=== PATIENT | female | born 1995 | race Two or more races ===

== ENCOUNTER 2016-12-18 15:07 | Emergency (ER) | payer MEDICAID | END 2016-12-18 15:10 | disposition left against medical advice (07) | LOC: ER 15:07 | DX: R11.0 Nausea (principal); R00.2 Palpitations ==

== ENCOUNTER 2017-06-28 15:32 | Emergency (ER) | payer MEDICAID ==
--- NOTE | 2017-06-28 15:35 | ED Physician Chart ---
Chief Complaint/HPI - Patient Information Date Seen:: 06/28/17 Time Seen:: 15:34 Chief Complaint:: right lower extremity redness History of Present Illness:: 22-year-old female complains of acute, constant, worsening, moderate to severe, right lower initial redness that started yesterday. This is in the setting of being bitten by unknown insects along the ankle. Has associated swelling, pain and warmth to touch of the area. She had a similar occurrence about one year ago developed cellulitis. Allergies:: Allergies Allergy/AdvReac Type Severity Reaction Status Date / Time No Known Allergies Allergy Verified 07/21/16 14:00 Historian:: Patient Review:: Nurse's Note Reviewed Review of Systems - Review of Systems Other: Complete system review otherwise unremarkable except as noted in history of present illness. Past Medical History - Past Medical History Past Medical History: No significant medical hx Family History: None Social History: Non Smoker, No Alcohol, No Drug Use Surgical History: None Psychiatricy History: None Medication: None Family Medical History - Family Member Mother History Unknown: Yes Ethnicity: Living Status: Still Living Hx Family Cancer: No Hx Family Coronary Artery Disease: No Hx Family Congestive Heart Failure: No Hx Family Hypertension: No Hx Family Stroke: No Hx Family Diabetes: Yes Hx Family Seizures: No Hx Family Dementia: No Hx Family AIDS: No Hx Family HIV: No Hx Family COPD: No Hx Family Hepatitis: No Hx Family Psychiatric Problems: No Hx Family Tuberculosis: No Physical Exam - Physical Examination Other:: INITIAL VITAL SIGNS: Reviewed by me GENERAL: Alert and interactive. No acute distress HEAD: Head is normocephalic and atraumatic EYES: EOMI. PERRL. No scleral icterus. No conjunctival injection ENT: Moist mucous membranes. NECK: Supple. No masses. Full range of motion RESPIRATORY: No tachypnea. Clear breath sounds bilaterally. No wheezing, rales, or rhonchi CV: Regular rate and rhythm. No murmurs, rubs, or gallops ABDOMEN: Soft, non-distended, non-tender. No guarding. No rebound. No masses. EXTREMITIES: Right lower extremity around the ankle has nearly circumferential erythema with edema and warmth to palpation, consistent with cellulitis. SKIN: Warm and dry. No obvious rashes. NEUROLOGIC: Alert and oriented. Face is symmetric. Speech is normal. Moves all extremities equally. Motor and sensory distally intact. ED Septic Shock - . Is Septic Shock (SBP<90, OR Lactate>4 mmol\L) present?: No Reassessment (Disposition) - Reassessment Reassessment:: Blood pressure was noted to be elevated over 120/80. There were no signs of hypertension. Discussed the findings with the patient and recommended that the patient follow up with the primary care physician regarding the elevated blood pressure. Patient was bit by an insect on the ankle multiple areas. She is consequently developed what looks like cellulitis of the right lower extremity. She's had similar episode about one year ago. Took Keflex and Bactrim and symptoms resolved. Today we provided a prescription for Keflex, Bactrim and ibuprofen. Here in the ER we administered her first dose of Keflex and Bactrim. Advised her to follow up with the primary care physician within 2-3 days for wound check. Return to ER precautions were given. The patient says she understands and agrees with the plan. Reassessment Condition:: Improved - Diagnosis Diagnosis:: Right lower extremity cellulitis - Aftercare/Follow up Instructions Aftercare/Follow-Up Instructions:: Counseled pt regarding lab results/diagnosis & need follow up, Refer to Discharge Instructions - Patient Disposition Discharge/Transfer:: Home Time:: 15:50 Condition at Disposition:: Improved ED Discharge Plan - Patient Disposition Admit/Discharge/Transfer: PT DISCHARGED HOME Condition at Disposition: Improved Instructions: Cellulitis, [id number] Additional Instructions: Follow-up with your primary care provider within 2-3 days for checkup
[2017-06-28] MEDS ORDERED: Sulfamethoxazole/TMP 800/160mg Tab PO ONE (15:42)
[2017-06-28] MEDS ORDERED: Sulfamethoxazole/TMP 800/160mg Tab ONE (15:56)
== END 2017-06-28 16:03 | disposition home or self-care (01) ==
LOC: ER 15:32
DX: L03.115 Cellulitis of right lower limb (principal)
CPT/HCPCS: Z7502; Z7610

== ENCOUNTER 2017-08-31 02:16 | Emergency (ER) | payer MEDICAID ==
--- NOTE | 2017-08-31 02:45 | ED Physician Chart ---
ED Chief Complaint/HPI - Patient Information Date Seen:: 08/31/17 Time Seen:: 02:00 Chief Complaint:: Neck pain History of Present Illness:: Neck pain 1 day duration Allergies:: Allergies Allergy/AdvReac Type Severity Reaction Status Date / Time No Known Allergies Allergy Verified 07/21/16 14:00 Vitals:: Vital Signs - 8 hr 08/31/17 02:18 Temp 98.6 F HR 66 RR 18 BP 100/67 O2 Sat % 97 Historian:: Patient Review:: Nurse's Note Reviewed ED Review of Systems - Review of Systems General/Constitutional: No fever Skin: No skin lesions Head: No headache Eyes: No loss of vision ENT: Earache Neck: Neck pain (point tenderness) Cardio Vascular: No chest pain Pulmonary: No SOB GI: No diarrhea G/U: No dysuria Musculoskeletal: Bone or joint pain (Right side of neck) Endocrine: No polyuria Psychiatric: No suicidal ideation Hematopoietic: No bruising Allergic/Immuno: No urticaria Neurological: No syncope ED Past Medical History - Past Medical History Past Medical History: No significant medical hx Family History: None Psychiatricy History: None Family Medical History - Family Member Mother History Unknown: Yes Ethnicity: Living Status: Still Living Hx Family Cancer: No Hx Family Coronary Artery Disease: No Hx Family Congestive Heart Failure: No Hx Family Hypertension: No Hx Family Stroke: No Hx Family Diabetes: Yes Hx Family Seizures: No Hx Family Dementia: No Hx Family AIDS: No Hx Family HIV: No Hx Family COPD: No Hx Family Hepatitis: No Hx Family Psychiatric Problems: No Hx Family Tuberculosis: No ED Physical Exam - Physical Examination General/Constitutional: Awake, Well-developed, well-nourished, No distress Head: Atraumatic Eyes: Lids, conjuctiva normal Skin: Nl inspection ENMT: External ears, nose nl, TM canals nl Other ENMT comments:: red pharanyx eqivocal adenopathy Neck: No nuchal rigidity Other Neck comments:: eqivocal adenopathy no mastoid tenderness Respiratory: Nl effort/Exclusion Cardio Vascular: RRR, No murmur, gallop, rubs, NL S1 S2 GI: No tenderness/rebounding/guarding Extremities: Full ROM Neuro/Psych: Alert/oriented Misc: Normal back ED Assessment - Assessment General Assessment: localized tenderness early torticollis This condition life threatening/high prob of deterioration: No ED Septic Shock - . Is Septic Shock (SBP<90, OR Lactate>4 mmol\L) present?: No - <6hrs of presentation: Vital Signs: Vital Signs - 8 hr 08/31/17 02:18 Temp 98.6 F HR 66 RR 18 BP 100/67 O2 Sat % 97 ED Reassessment (Disposition) - Reassessment Reassessment Condition:: Unchanged - Diagnosis Diagnosis:: early torticollis versus other etiology, not meningitis - Aftercare/Follow up Instructions Notes:: Instructed to see PMD on Friday for further examination. X-ray at this point low probability as no trauma involved. Throat culture pending, fever would prompt reevaluation. Medication Prescribed:: tylenol - Patient Disposition Discharge/Transfer:: Home ED Discharge Plan - Patient Disposition Admit/Discharge/Transfer: PT DISCHARGED HOME Instructions: Cervical Sprain, [id number] Additional Instructions: FOLLOW UP WITH PMD ON FRIDAY A.M., USE HEAT 30 MINUTES ON 30 MINUTES OFF, GO BACK TO EMERGENCY ROOM IF SYMPTOMS WORSEN. Forms: Work Release Form
== END 2017-08-31 02:50 | disposition home or self-care (01) ==
LOC: ER 02:16
DX: M43.6 Torticollis (principal)
CPT/HCPCS: 87070-90; Z7502

== ENCOUNTER 2017-12-06 16:56 | Emergency (ER) | payer MEDICAID ==
--- NOTE | 2017-12-06 17:25 | ED Physician Chart ---
ED Chief Complaint/HPI - Patient Information Date Seen:: 12/06/17 Time Seen:: 17:10 Chief Complaint:: FALL ON THE ABDOMEN History of Present Illness:: THIS IS A 22 YO FEMALE WHO FELL AT 4 PM TODAY AND NOW IS CONCERNED WITH THE . SHE DENIES VAGINAL BLEEDING BUT HAS SOME MILD PELVIC PAIN. SHE IS 10 WEEKS . SHE HAS BEEN ON TREATMENT FOR A URI AND JUST FINISHED A Z- MADIHA AND A COUGH SYRUP FOR CHEST CONGESTION. Allergies:: Allergies Allergy/AdvReac Type Severity Reaction Status Date / Time No Known Allergies Allergy Verified 07/21/16 14:00 Vitals:: Vital Signs - 8 hr 12/06/17 17:05 Temp 97.3 F HR 90 RR 16 BP 103/58 O2 Sat % 98 Historian:: Patient Review:: Nurse's Note Reviewed ED Review of Systems - Review of Systems General/Constitutional: No fever, No chills, No weight loss, No weakness, No diaphoresis, No edema, No loss of appetite Skin: No skin lesions, No rash, No bruising Head: No headache, No light-headedness Eyes: No loss of vision, No pain, No diplopia ENT: No earache, No nasal drainage, No sore throat, No tinnitus Neck: No neck pain, No swelling, No thyromegaly, No stiffness, No mass noted Cardio Vascular: No chest pain, No palpitations, No PND, No orthopnea, No edema Pulmonary: No SOB, Cough, No sputum, Wheezing GI: No nausea, No vomiting, No diarrhea, No pain, No melena, No hematochezia, No constipation, No hematemesis G/U: No dysuria, No frequency, No hematuria Dealer Card Room: Other (PELVIC PAIN) Musculoskeletal: No bone or joint pain, No back pain, No muscle pain Endocrine: No polyuria, No polydipsia Psychiatric: No prior psych history, No depression, No anxiety, No suicidal ideation Hematopoietic: No bruising, No lymphadenopathy Allergic/Immuno: No urticaria, No angioedema Neurological: No syncope, No focal symptoms, No weakness, No paresthesia, No headache, No seizure, No dizziness, No confusion, No vertigo ED Past Medical History - Past Medical History Obtainable: Yes Past Medical History: Asthma/COPD Family History: None Social History: Non Smoker, No Alcohol, No Drug Use Surgical History: None Psychiatricy History: None Medication: Reviewed Family Medical History - Family Member Mother History Unknown: Yes Ethnicity: Living Status: Still Living Hx Family Cancer: No Hx Family Coronary Artery Disease: No Hx Family Congestive Heart Failure: No Hx Family Hypertension: No Hx Family Stroke: No Hx Family Diabetes: Yes Hx Family Seizures: No Hx Family Dementia: No Hx Family AIDS: No Hx Family HIV: No Hx Family COPD: No Hx Family Hepatitis: No Hx Family Psychiatric Problems: No Hx Family Tuberculosis: No ED Physical Exam - Physical Examination General/Constitutional: Awake, Well-developed, well-nourished, Alert, No distress, GCS 15, Non-toxic appearing, Ambulatory Head: Atraumatic Eyes: Lids, conjuctiva normal, PERRL, EOMI Skin: Nl inspection, No rash, No skin lesions, No ecchymosis, Well hydrated, No lymphadenopathy ENMT: External ears, nose nl, Nasal exam nl, Lips, teeth, gums nl Neck: Nontender, Full ROM w/o pain, No JVD, No nuchal rigidity, No bruit, No mass, No stridor Respiratory: Nl effort/Exclusion, Clear to Auscultation, No Wheeze/Rhonchi/ Rales (THERE ARE BILATERAL WHEEZES AND RONCHI HEARD) Cardio Vascular: RRR, No murmur, gallop, rubs, NL S1 S2 GI: No tenderness/rebounding/guarding, No organomegaly, No hernia, Normal BS's, Nondistended, No mass/bruits, No McBurney tenderness : No CVA tenderness Extremities: No tenderness or effusion, Full ROM, normal strength in all extremities, No edema, Normal digits & nails Neuro/Psych: Alert/oriented, DTR's symmetric, Normal sensory exam, Normal motor strength, Judgement/insight normal, Mood normal, Normal gait, No focal deficits Misc: Normal back, No paraspinal tenderness ED Assessment - Assessment General Assessment: BRONCHITIS EARLY CONTUSION OF THE ABDOMINAL WALL ED Septic Shock - . Is Septic Shock (SBP<90, OR Lactate>4 mmol\L) present?: No - <6hrs of presentation: Vital Signs: Vital Signs - 8 hr 12/06/17 17:05 Temp 97.3 F HR 90 RR 16 BP 103/58 O2 Sat % 98 ED Reassessment (Disposition) - Reassessment Reassessment Condition:: Improved - Diagnosis Diagnosis:: BRONCHITIS EARLY CONTUSION OF THE ABDOMINAL WALL - Aftercare/Follow up Instructions Aftercare/Follow-Up Instructions:: Counseled pt regarding lab results/diagnosis & need follow up, Refer to Discharge Instructions, Counseled pt & family regarding lab results/diagnosis & need follow up - Patient Disposition Discharge/Transfer:: Home Condition at Disposition:: Improved ED Discharge Plan - Patient Disposition Admit/Discharge/Transfer: PT DISCHARGED HOME Condition at Disposition: Improved Instructions: - First Trimester, [id number], Contusion, Easy-to- Read, Bronchitis, [id number]
[2017-12-06 17:44] LABS: % BASOPHILS 0.1 % (0.0-2.0); % EOSINOPHILS 12.2 % (0.0-5.0); % LYMPHOCYTES 16.9 % (20.0-50.0); % MONOCYTES 8.7 % (2.0-10.0); % NEUTROPHILS 62.1 % (40.0-80.0); EOSINOPHILE ABSOLUTE 1.5 Th/cmm (0.1-0.4); HEMOGLOBIN 12.8 gm/dL (12-16); LYMPHOCYTE ABSOLUTE 2.1 Th/cmm (1.5-3.0); MEAN CORPUSCULAR HEMOGLOBIN 32.2 pg (27.0-31.0); MEAN CORPUSCULAR HGB CONC 34.6 pg (28.0-36.0); MEAN PLATELET VOLUME 9.3 fl; MONOCYTE ABSOLUTE 1.1 Th/cmm (0.3-1.0); NEUTROPHILE ABSOLUTE 7.7 Th/cmm (1.8-8.0); RED BLOOD COUNT 3.98 Mil/cmm (3.80-5.10); RED CELL DISTRIBUTION WIDTH 12.3 % (11.5-20.0)
[2017-12-06 17:50] LABS: PLATELET COUNT 237 Th/cmm (150-400)
[2017-12-06 17:51] LABS: WHITE BLOOD COUNT 12.4 Th/cmm (4.8-10.8)
[2017-12-06 17:55] LABS: INR 0.94 (0.5-1.4); PROTHROMBIN TIME (TEST) 9.8 SECONDS (9.5-11.5)
[2017-12-06 18:00] LABS: ALB/GLOB RATIO 1.8 (1.0-1.8); ALBUMIN 4.2 gm/dL (3.7-5.3); ALKALINE PHOSPHATASE 61 U/L (34-104); ANION GAP 12.3 (7.0-16.0); BILIRUBIN,TOTAL 0.3 mg/dL (0.3-1.0); BUN - UREA NITROGEN 8 mg/dL (7-25); CALCIUM SERUM 8.7 mg/dL (8.6-10.3); CARBON DIOXIDE 21.2 mEq/L (21.0-31.0); CHLORIDE 102 mEq/L (98-107); CREATININE - SERUM 0.5 mg/dL (0.6-1.2); GFR AFRICAN-AMERICAN > 60.0 ml/min (>90); GFR NON AFRICAN-AMERICAN > 60.0 ml/min; GLUCOSE 96 mg/dL (70-105); POTASSIUM SERUM 3.5 mEq/L (3.5-5.1); SGOT 21 U/L (13-39); SGPT/ALT 17 U/L (7-52); SODIUM SERUM 132 mEq/L (136-145); TOTAL PROTEIN,SERUM 6.6 gm/dL (6.0-8.3)
--- NOTE | 2017-12-07 10:45 | Diagnostic Imaging Report ---
Ultrasound. HISTORY: Trauma. Findings: Real-time ultrasound summation of pelvis was performed planes. The study demonstrates single live intrauterine gestation with fetus in variable presentations. [place]-rump length pole 3.4 cm correspond to estimated gestational age of 10 weeks 3 days. Cardiac activity 1 75 bpm appreciated. EDC 06/19/2018 No free fluid is noted in cul-de-sac. Adnexa is normal the ovaries intact. Right ovary measures 2.5 x 2.5 cm Left ovary measures 2.0 with 0.5 cm. IMPRESSION: Single live intrauterine gestation with estimated gestational age pole 10 weeks 3 day. Follow-up examination recommended if clinically indicated.
== END 2017-12-06 18:30 | disposition home or self-care (01) ==
LOC: ER 16:56
DX: O99.511 Diseases of the respiratory system complicating pregnancy, first trimester (principal); S30.1XXA Contusion of abdominal wall, initial encounter; X58.XXXA Exposure to other specified factors, initial encounter; Z3A.10 10 weeks gestation of pregnancy; Y93.89 Activity, other specified; Y92.89 Other specified places as the place of occurrence of the external cause; Y99.8 Other external cause status
CPT/HCPCS: 36415-UA; 76801-TC; 80053-TC; 83605; 85025-TC; 85610-TC